=== PATIENT | female | born 1995 | race Caucasian/White ===

== ENCOUNTER 2019-10-08 15:17 | Emergency (ER) | payer OTHER, MEDICAID ==
[~2019-10-08] VITALS: Ht 167.6 cm; Wt 175.1 kg
[2019-10-08 15:26] VITALS: BP_SYST 145
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
--- NOTE | 2019-10-08 15:37 | NUR ---
Patient to ER bed 7 to gown for evaluation. Side rails up. Report given to FILEMON Calderon.
--- NOTE | 2019-10-08 15:50 | NUR ---
DR LANGSTON IN TO ASSESS
[2019-10-08] MEDS ORDERED: KETOROLAC TROMETHAMINE 60 MG/2 ML VIAL IM ONE (16:00)
--- NOTE | 2019-10-08 16:08 | NUR ---
Patient given written and verbal discharge instructions and verbalizes understanding. ER MD discussed with patient the results and treatment provided. Patient in stable condition. Rx of IBU given. Patient educated on pain management and to follow up with PMD. Pain Scale 4/10 Opportunity for questions provided and answered. Medication side effect fact sheet provided.
[2019-10-08 16:11] VITALS: BP_SYST 145
== END 2019-10-08 16:11 | disposition home or self-care (01) ==
LOC: SED 15:17
DX: S39.012A Strain of muscle, fascia and tendon of lower back, initial encounter (principal); R51 Headache; V49.50XA Passenger injured in collision with unspecified motor vehicles in traffic accident, initial encounter; Y93.89 Activity, other specified; Y92.89 Other specified places as the place of occurrence of the external cause; Y99.8 Other external cause status
CPT/HCPCS: 96372; 99283; J1885

== ENCOUNTER 2020-01-20 11:51 | Emergency (ER) | payer MEDICAID ==
[~2020-01-20] VITALS: Ht 167.6 cm; Wt 147.4 kg
[2020-01-20 11:54] VITALS: BP_SYST 160
--- NOTE | 2020-01-20 11:54 | NUR ---
Patient to ER bed 4 to gown for evaluation. Side rails up. Report given to FERNANDO COLBERT.
--- NOTE | 2020-01-20 11:55 | NUR ---
Pt walked in to ER with c/o sore throat x3 days. Denies cough, SOB or fever. V/S stable. Currently sitting at bedside, will continue to monitor.
--- NOTE | 2020-01-20 12:01 | NUR ---
SANDRA Landin at bedside examining patient.
[2020-01-20 12:12] VITALS: BP_SYST 160
--- NOTE | 2020-01-20 12:12 | NUR ---
Patient given written and verbal discharge instructions and verbalizes understanding. ER MD discussed with patient the results and treatment provided. Patient in stable condition. ID arm band removed. Rx of AMOXICILLIN & IBUPROFEN given. Patient educated on pain management and to follow up with PMD. Pain Scale 3/10. Opportunity for questions provided and answered. Medication side effect fact sheet provided.
== END 2020-01-20 12:12 | disposition home or self-care (01) ==
LOC: SED 11:51
DX: J02.0 Streptococcal pharyngitis (principal)
CPT/HCPCS: 99283

== ENCOUNTER 2020-09-24 06:12 | Emergency (ER) | payer MEDICAID ==
[~2020-09-24] VITALS: Ht 167.6 cm; Wt 115.7 kg
[2020-09-24 06:12] VITALS: BP_SYST 166
[2020-09-24] MEDS ORDERED: CYCLOBENZAPRINE HCL 10 MG TABLET (FLEXERIL) PO ONE (06:30)
[2020-09-24] MEDS ORDERED: ACETAMINOPHEN 500 MG TABLET PO ONE (06:30)
[2020-09-24] MEDS ORDERED: KETOROLAC TROMETHAMINE 60 MG/2 ML VIAL IM ONE (06:30)
[2020-09-24] MEDS ORDERED: IBUP-1969 PO (06:45)
[2020-09-24] MEDS ORDERED: LIDO1ADH71 TD (06:45)
[2020-09-24] MEDS ORDERED: CYCL-10 PO (06:45)
[2020-09-24] MEDS ORDERED: ACET-2634 PO (06:45)
[2020-09-24 06:55] VITALS: BP_SYST 145
== END 2020-09-24 06:55 | disposition home or self-care (01) ==
LOC: SED 06:12
DX: M54.5 Low back pain (principal); Z79.899 Other long term (current) drug therapy
CPT/HCPCS: 96372; 99283; J1885

== ENCOUNTER 2020-11-23 22:44 | Emergency (ER) | payer MEDICAID ==
[~2020-11-23] VITALS: Ht 165.1 cm; Wt 108.9 kg
[~2020-11-23 22:44] MED LIST: ACET-2634 PO; CYCL-10 PO; IBUP-1969 PO; LIDO1ADH71 TD
[2020-11-23 22:50] VITALS: BP_SYST 181
[2020-11-24] MEDS ORDERED: IBUPROFEN 800 MG TABLET PO ONE (00:15)
[2020-11-24 01:12] VITALS: BP_SYST 156
== END 2020-11-24 01:12 | disposition home or self-care (01) ==
LOC: SED 22:44
DX: S90.121A Contusion of right lesser toe(s) without damage to nail, initial encounter (principal); Z79.899 Other long term (current) drug therapy; W20.8XXA Other cause of strike by thrown, projected or falling object, initial encounter; Y93.89 Activity, other specified; Y92.89 Other specified places as the place of occurrence of the external cause; Y99.8 Other external cause status
CPT/HCPCS: 99283